=== PATIENT | female | born 1955 | race Caucasian/White ===

== ENCOUNTER 2016-07-08 17:46 | Inpatient (IN) | payer OTHER ==
--- NOTE | ~2016-07-08 | EKG ---
PATIENT: DARLENE TSE UNIT #: [id number] Ventricular Rate: 119 BPM Atrial Rate: 119 BPM QRS Duration: 84 ms Q-T Interval: 282 ms QTC Calculation(Bezet): 396 ms Calculated R [place]: 51 degrees Calculated T [place]: 52 degrees Diagnosis Line: Atrial fibrillation with rapid ventricular Diagnosis Line: response Diagnosis Line: Nonspecific ST and T wave abnormality , probably Diagnosis Line: digitalis effect Diagnosis Line: Abnormal ECG Diagnosis Line: When compared with ECG of 08-JUL-2016 18:03, Diagnosis Line: Atrial fibrillation has replaced Sinus rhythm Diagnosis Line: Confirmed by JOSE MCINTYRE MD ([id number]) on 07/13/2016 Diagnosis Line: 9:33:29 AM INTERPRETING MD: MIGUELINA RODRIGUEZ
--- NOTE | ~2016-07-08 | CT57 ---
[facility] A Service of [facility] RADIOLOGY TEXT RESULTS PATIENT: DARLENE TSE LOCATION: [address]-04 : [birth year] UNIT #: [id number] AGE: [address]: Corbin Long MD SEX: F ORDER DR: [id number] [place] [id number] [facility]. [place], [place] [address] [id number] I MR#: [id number] #: [id number] NAME: DARLENE TSE : 1955 SEX: F STUDY DATE/TIME: 07/09/2016 16:37 UNIT: [facility] ROOM: [facility] STUDY DESCRIPTION: CT Chest Wo Cont Attending Physician: Corbin Long M.D. Ordering Physician: Corbin Long M.D. Primary Care Physician: Janna Yung M.D. MEDICAL IMAGING REPORT This report is preliminary unless electronic signature is present EXAM CT chest without contrast INDICATIONS Shortness of air for the past [address] chest. This CT exam was performed with one or more of the following radiation dose reduction techniques: Automatic exposure control, adjustment of mA and/or kV according to patient size, and iterative reconstruction. COMPARISON None FINDINGS There is dense consolidation in the right middle lobe and essentially the complete right lower lobe. There is large right and moderate left pleural effusion. Opacity in the posterior left lung base may represent infiltrate or atelectasis. There is patchy nodular opacity in the posterior right upper lobe with ground-glass opacity and interstitial thickening in the anterior upper right and left lung. Diffuse mildly prominent mediastinal lymph nodes. A subcarinal node measures up 2.8 x 1.4 cm. No acute findings in the included upper abdomen. No aggressive appearing bone lesion. Old or late subacute fractures of lower left ribs. IMPRESSION 1. Dense consolidation right middle lobe and right lower lobe in keeping with pneumonia. 2. Bilateral pleural effusions. 3. Opacity in the posterior left lower lobe could represent infiltrate or atelectasis. [facility] A Service of [facility] RADIOLOGY TEXT RESULTS PATIENT: DARLENE TSE LOCATION: [facility]2-04 : 59 UNIT #: [id number] AGE: [address]: Corbin Long MD SEX: F ORDER DR: 4. Nodular opacities in the posterior right upper lobe could represent pneumonia or true nodules and should be followed. 5. Interstitial thickening and ground-glass opacity in both upper lobes, could also represent pneumonia, chronic change or possibly asymmetric patchy edema. Dictated by... Hector Hanson M.D. THIS IS AN ELECTRONICALLY VERIFIED REPORT Hector Hanson M.D. at 07/10/2016 10:02 AM GENTRY/roberta TD: 07/10/2016 06:57 JOB #: [id number] MEDICAL IMAGING REPORT Page 1 of 1 COPY
--- NOTE | ~2016-07-08 | CR63 ---
[facility] A Service of [facility] RADIOLOGY TEXT RESULTS PATIENT: DARLENE TSE LOCATION: C3A 317-01 : 59 UNIT #: [id number] AGE: [address]: Corbin Long MD SEX: F ORDER DR: [id number] [facility] [address] [facility]. [place], [place] [address] [id number] I MR#: [id number] Acc #: [id number] NAME: DARLENE TSE : 1955 SEX: F STUDY DATE/TIME: 07/11/2016 11:42 UNIT: C3A PCU ROOM: 317 STUDY DESCRIPTION: CR Chest 2 View Attending Physician: Corbin Long M.D. Ordering Physician: Kathy Livingston M.D. Primary Care Physician: Janna Yung M.D. MEDICAL IMAGING REPORT This report is preliminary unless electronic signature is present EXAM Chest 2 views, 07/11/2016 at 11:42 hours HISTORY A 61-year-old with shortness of air, fever and dizziness since 07/08/16 for followup. COMPARISON Chest x-ray 07/10/[address] 07/09/2016 FINDINGS 2 view upright chest demonstrates stable right PICC line with tip in SVC. The cardiac, mediastinal and hilar contours are stable. There is dense airspace density in the right lower lung similar to prior study with patchy density right upper lung unchanged. There is diffuse increase in mixed interstitial and airspace change throughout the left lung as compared to yesterday's exam suggesting either worsening diffuse infection or superimposed edema. Bilateral pleural effusions are seen on the lateral view. IMPRESSION Stable dense opacity in the right mid and lower lung with patchy density in the right upper lung with significant interval increase in diffuse mixed interstitial airspace changes throughout the left lung as compared to yesterday's exam. Findings suggest either worsening diffuse bilateral infection or superimposed edema. Small to moderate bilateral pleural effusions are seen on the lateral view. STAT * RESULT Dictated by... [facility] A Service of [facility] RADIOLOGY TEXT RESULTS PATIENT: DARLENE TSE LOCATION: [facility] 317-01 : 59 UNIT #: [id number] AGE: [address]: Corbin Long MD SEX: F ORDER DR: Zuri Avalos M.D. THIS IS AN ELECTRONICALLY VERIFIED REPORT Zuri Avalos M.D. at 07/11/2016 1:22 PM TOO/kate TD: 07/11/2016 12:48 JOB #: [id number] MEDICAL IMAGING REPORT Page 1 of 1 COPY
--- NOTE | ~2016-07-08 | CR72 ---
[facility] A Service of [facility] RADIOLOGY TEXT RESULTS PATIENT: DARLENE TSE LOCATION: [facility] 317-01 : 59 UNIT #: [id number] AGE: [address]: Corbin Long MD SEX: F ORDER DR: [id number] [facility] [address] [facility] [address]. [place], [place] [address] [id number] I MR#: [id number] Acc #: [id number] NAME: DARLENE TSE : 1955 SEX: F STUDY DATE/TIME: 07/10/2016 2:36 UNIT: [facility] ROOM: [facility] STUDY DESCRIPTION: CR Chest Single View Portable Attending Physician: Corbin Long M.D. Ordering Physician: Corbin Long M.D. Primary Care Physician: Janna Yung M.D. MEDICAL IMAGING REPORT This report is preliminary unless electronic signature is present EXAM AP portable chest 07/10/2016 HISTORY Pneumonia. Follow up inpatient cardiopulmonary status. TECHNIQUE AP portable chest x-ray. FINDINGS The exam shows no change since 07/08/2016. Dense airspace consolidation within the right middle lobe and right lower lobe. Mild patchy infiltrates at the lung apices. Heart size and pulmonary vascularity remain normal. PICC in good position. IMPRESSION Stable portable chest radiograph, unchanged since 07/08/2016. Dictated by... Eric Gutierrez M.D. THIS IS AN ELECTRONICALLY VERIFIED REPORT Eric Gutierrez M.D. at 07/10/2016 9:43 PM JUVENAL/roberta TD: 07/10/2016 12:56 JOB #: [id number] MEDICAL IMAGING REPORT Page 1 of 1 COPY
--- NOTE | ~2016-07-08 | DS ---
Unit #: [id number] #: [id number] Patient: DARLENE TSE [id number] [address] [address] [id number] I MR#: [id number] NAME: DARLENE TSE ROOM: 317 Age: 61 Sex: F Admission Date: 07/08/2016 : 1955 Discharge Date: 07/18/2016 Attending Physician: Norris Eagle M.D. Primary Care Physician: Janna Yung M.D. DISCHARGE SUMMARY DISCHARGE DIAGNOSES 1. Acute hypoxic respiratory failure due to pneumonia and chronic obstructive pulmonary disease. 2. Acute on chronic diastolic heart failure. The patient's ejection fraction is predicted to be 60%. Will be discharged on Lasix 40 mg orally daily. 3. Nonsustained ventricular tachycardia likely due to electrolyte imbalance as patient's heart cath was normal and her ejection fraction is normal as well. 4. Pneumonia, present on admission, was treated with Levaquin. 5. Clostridium difficile on Flagyl, has symptomatically improved by much at this time. Will be discharged with one more week of Flagyl. 6. Sepsis, present on admission with Streptococcus pneumo bacteremia due to pneumonia. 7. Chronic back pain. 8. Chronic kidney disease stage 2, stable at this time. 9. History of paroxysmal atrial fibrillation, stable in normal sinus rhythm. 10. Hyperlipidemia. 11. History of pancreatitis: Patient was at one point a severe alcoholic. 12. Chronic diarrhea: Patient tells me that she has had diarrhea since 2015. 13. Gastroesophageal reflux disease. 14. Major depression without homicidal or suicidal ideation. 15. Acute on chronic hypoxic respiratory failure. CONSULTANTS 1. Dr. Livingston of pulmonary. 2. [facility]. PROCEDURES The patient had a heart cath by Dr. Moore on July 18, 2016 with normal coronary arteries and predicted ejection fraction 60%. DIAGNOSTIC STUDIES LABORATORY: Today's lab: The patient's BMP: Glucose of 126, BUN 28, creatinine 1.1, sodium 136, potassium 4.3, chloride 97, CO2 of 31, calcium 8.7, magnesium 1.7. Total protein is 5.2, albumin is 2.2, total bilirubin 0.4, AST 20, ALT 14, alkaline phosphatase 75. CBC with WBC of 11.6, RBC 3.76, hemoglobin 10.4, hematocrit 32.6, MCV is 86.7, MCH is 27.6, MCHC is 31.8, RDW is 17.5, platelets 330,000, MPV 6.7. IMAGING: Chest x-ray on July 08, 2016: Impression: Extensive Unit #: [id number] #: [id number] Patient: DARLENE TSE infiltrate right mid to lower lung field consistent with pneumonia. Left lung was clear. CT chest without contrast, July 09, 2016: Impression: Dense consolidation of right middle lobe and right lower lobe in keeping with pneumonia, bilateral pleural effusion, opacity in the posterior left lower lobe could represent infiltrate or atelectasis. Nodular opacities in the posterior right upper lobe could represent pneumonia or true nodules and should be followed. Interstitial thickening and ground-glass opacity in both lower lobes could represent pneumonia, chronic change, or possibly asymmetric patchy edema. Chest x-ray on July 10, 2016: Impression: Stable chest x-ray, unchanged since July 08, 2016. Another chest x-ray on July 11, 2016: Impression: Stable dense opacity in the right middle and lower lobe, right upper lobe with significant interval increase and diffuse mixed interstitial airspace throughout the left lung as compared to the x-ray from the day before suggesting worsening diffuse bilateral infection or superimposed edema. [id number] bilateral pleural effusions are seen on the lateral view. Chest x-ray on July 13, 2016: Impression: Dense consolidation in the right lung, significantly improved. Worsening infiltrates in the left lobe. Chest x-ray on July 15, 2016: Impression: Improvement in the interstitial and alveolar opacities throughout the left lung. No significant pleural effusion. No evidence of pneumothorax. Cardiomediastinal silhouette is within normal limits. Improving pneumonia. Chest, two view, on July 17, 2016: Impression: Improved but persistent bilateral infiltrates. HOSPITAL COURSE The patient is a 61-year-old female with past medical history of paroxysmal atrial fibrillation, chronic kidney disease, alcohol abuse who is homeless and was brought to the emergency room due to having fevers at the facility there. From the H and P, the patient stated that she stopped drinking alcohol three days prior to admission. [facility]. Had noted increasing deep chronic productive cough with light green sputum with shortness of breath. She stated that she also had feeling of lightheadedness and dizzy with fevers, chills, and sweats and at the [facility] was found to have a fever of 102. She was sent to the emergency department where she was found to have tachycardia and was hypotensive. She received 2 L of fluid resuscitation. Blood pressure on exam was systolic of 70 mmHg. Chest x-ray had shown right mid to lower lobe infiltrate. She was given Rocephin and Zithromax. She was hospitalized for sepsis due to community-acquired pneumonia. She was followed by pulmonary. With her history of atrial fibrillation, cardiology was consulted. With regard to her symptoms, she had been complaining about diarrhea which is chronic she says since 2014 but with the antibiotics, she said that it was worsening and she had continuous diarrhea. When assessed, her Clostridium difficile was positive. We have started the patient on Flagyl and she will continue with Flagyl for the next seven days with regard to her pneumonia. She was found to have Streptococcus pneumonia bacteremia in 2/2 sets of blood. She had completed her course of IV antibiotics for the Streptococcus pneumo and Unit #: [id number] #: [id number] Patient: DARLENE TSE bacteremia. Her blood culture that was redrawn on July 10 had no growth. She had been afebrile. At this time, she does still have diarrhea with bowel movements but it has reduced down to three a day. I presume that she would do well after she completes her course of Flagyl treatment. If there are any other concerns for persistent Clostridium difficile, a repeat stool culture can be assessed for Clostridium difficile. The patient did have a run of nonsustained ventricular tachycardia on July 17. Her Lopressor was increased from twice daily to three times daily but was felt by cardiology that this was likely due to an electrolyte imbalance. At that time, her potassium was 3.1 and magnesium was 1.1. It has been replaced and we will continue with its replacement. She did have a heart cath to assess nonsustained ventricular tachycardia and the acute on chronic diastolic heart failure. She was found to have normal coronary arteries and predicted ejection fraction of 60%. She is stable at this time. Due to her much deconditioning, she will be discharged to rehab. She has been accepted to [facility] and will be discharged there. DISCHARGE CONDITION Stable to [facility]. DISCHARGE INSTRUCTIONS 1. Please arrange for a primary care physician for this patient so that she can followup with a physician in one to two weeks after discharge. 2. She can have a repeat magnesium, CBC, and BMP on Saturday, July 23, 2016, to assess her electrolytes. 3. She is chronically on oxygen and states that she was using it prior to being homeless, so she will go there with oxygen at 2 L a minute. DISCHARGE MEDICATIONS 1. DuoNeb inhaled four times daily. 2. Prednisone 20 mg for the next three days, then 10 mg for the next three days. 3. She can have Tylenol for pain 500 mg orally three times daily as needed for pain and/or fever. 4. Gabapentin - I am reducing it to 600 mg orally twice daily. 5. She can have the Remeron 15 mg orally at bedtime. 6. Zoloft 200 mg orally daily. 7. Zyrtec 10 mg orally daily. 8. Pravachol 40 mg orally at bedtime. 9. Abreva topically as needed for chapped lips. 10. She does not need any more hydroxyzine. 11. Lopressor - this is recommended per cardiology to reduce to 12.5 mg orally twice daily. Hold for systolic blood pressure less than 110 or heart rate less than 55 beats per minute. 12. Lasix 40 mg orally daily. Hold for systolic blood pressure less than 90. 13. Mucinex one tablet orally twice daily. 14. Lisinopril 2.5 mg orally daily. 15. Flagyl 500 mg orally three times daily for the next three days. 16. Florastor 250 mg orally twice daily. 17. Multivitamin one tablet orally daily. 18. Vitamin B12 with vitamin C complete one tablet orally daily. 19. Prilosec 20 mg orally daily. 20. Calcium carbonate 500 mg orally twice daily. 21. K-Dur 20 mEq orally twice daily. 22. She does not need any more Flexeril. 23. Thiamine 100 mg orally daily. 24. Vitamin B12 at 1000 mcg orally daily. Unit #: [id number] #: [id number] Patient: DARLENE TSE This dictation took 45 minutes to include patient education and to coordinate care. Dictated by... Abhishek Parekh PA-C for Hari Sams TD: 07/18/2016 14:04 JOB #: [id number] DISCHARGE SUMMARY Page 1 of 1 X X DISCHARGE SUMMARY
--- NOTE | ~2016-07-08 | CR63 ---
[facility] A Service of [facility] & [facility] RADIOLOGY TEXT RESULTS PATIENT: DARLENE TSE LOCATION: [facility] 317- : 59 UNIT #: [id number] AGE: [address]: Corbin Long MD SEX: F ORDER DR: [id number] [facility] [address] [facility]. [place], [place] [address] [id number] I MR#: [id number] Acc #: [id number] NAME: DARLENE TSE : 1955 SEX: F STUDY DATE/TIME: 07/13/2016 8:43 UNIT: A U ROOM: [facility] STUDY DESCRIPTION: CR Chest 2 View Attending Physician: Corbin Long M.D. Ordering Physician: Kathy Livingston M.D. Primary Care Physician: Janna Yung M.D. MEDICAL IMAGING REPORT This report is preliminary unless electronic signature is present EXAM PA and lateral chest INDICATION 61-year-old female with cough and shortness of breath for 1 week. Compared with yesterday. FINDINGS The dense consolidation of the right lung is significantly improved. There are worsening infiltrates however within the left lung. Heart size stable. Stable PICC line. Trace pleural fluid on the right. IMPRESSION 1. Dense consolidation in the right lung significantly improved. 2. Worsening infiltrates in the left lung. Dictated by... Roland Yung M.D. THIS IS AN ELECTRONICALLY VERIFIED REPORT Roland Yung M.D. at 07/13/2016 5:01 PM MEERA/monica TD: 07/13/2016 10:06 JOB #: [id number] MEDICAL IMAGING REPORT Page 1 of 1 COPY
--- NOTE | ~2016-07-08 | EKG ---
PATIENT: DARLENE TSE UNIT #: [id number] Ventricular Rate: 119 BPM Atrial Rate: 119 BPM P-R Interval: 136 ms QRS Duration: 66 ms Q-T Interval: 324 ms QTC Calculation(Bezet): 455 ms P [place]: -16 degrees Calculated R [place]: 30 degrees Calculated T [place]: 47 degrees Diagnosis Line: Sinus tachycardia Diagnosis Line: Septal infarct , age undetermined Diagnosis Line: Abnormal ECG Diagnosis Line: No previous ECGs available Diagnosis Line: Confirmed by VICKEY FREEDMAN MD ([id number]) on Diagnosis Line: 07/09/2016 8:02:44 AM INTERPRETING MD: JASMINA RODRIGUEZ
--- NOTE | ~2016-07-08 | CO ---
Unit #: [id number] #: [id number] Patient: DARLENE TSE [id number] [address] [place], [place] [address] [id number] I MR#: [id number] NAME: DARLENE STE ROOM: 317 Age: 61 Sex: F Admission Date: 07/08/2016 : 1955 Attending Physician: Corbin Long M.D. Primary Care Physician: Janna Yung M.D. Consultation Date: 07/12/2016 CONSULTATION REPORT REASON FOR CONSULTATION Congestive heart failure. HISTORY OF PRESENT ILLNESS This is a 61-year-old white female, who came to the emergency room because of shortness of breath. She states she has had shortness of breath with a productive cough with green sputum. She felt feverish and had chills. In the emergency room, chest x-ray was concerning for pneumonia. Follow up CT of the chest confirmed right lower lobe pneumonia. She has been treated with antibiotics. Blood cultures showed streptococcal bacteremia. Because of sepsis protocol she was given high-dose IV fluids. BNP on admission was 241, however, with elevation of 1575. It was felt that the patient may have congestive heart failure. During the course of her stay, the patient was noted to have runs of atrial fibrillation with rapid ventricular response. Admission EKG shows sinus tachycardia. The patient states she has had history of atrial fibrillation in the past. She has not been on anticoagulation. She gives a history of frequent falls and has had head injuries at least twice because of falls. She states she has an "equilibrium problem." She is also known to have vertigo. The patient is homeless and has been staying in the [place] in place. She has been seen at [facility], where she obtains her medications. She has not been on any medications for rate control. During her hospitalization, she was placed on metoprolol. She is also hypertensive this admission, her blood pressure has been as high as 166/110 mmHg. She denies chest pain or palpitations. She reports no leg edema. PAST MEDICAL HISTORY 1. Hypertension. 2. Paroxysmal atrial fibrillation, not on anticoagulation. Questionable secondary to falls. 3. Hyperlipidemia. 4. Chronic kidney disease. 5. Low back pain. 6. Chronic diarrhea. 7. Vertigo. 8. EtOH abuse. 9. GERD. 10. Active smoker. 11. History of frequent falls. 12. History of pancreatitis. Unit #: [id number] #: [id number] Patient: DARLENE TSE PAST SURGICAL HISTORY No previous surgeries. SOCIAL HISTORY The patient is homeless. She smokes a pack of cigarettes daily. Has a remote history of alcohol use. She states she quit drinking heavily several years ago. She denies illicit drug use. FAMILY HISTORY Mother had congestive heart failure. ALLERGIES Eliquis. HOME MEDICATIONS Remeron 15 mg q.h.s., acetaminophen 1000 mg t.i.d. p.r.n., hydroxyzine 25 mg q.6 hours p.r.n., calcium carbonate 500 mg b.i.d., nortriptyline 1 to 3 tablets q.h.s., vitamin B complex 1 tablet daily, Neurontin 600 mg t.i.d., Zoloft 200 mg daily, potassium chloride 20 mEq b.i.d., Flexeril 10 mg q.h.s., multivitamin 1 tablet daily, pravastatin 40 mg q.h.s., omeprazole 20 mg daily, and Zyrtec 10 mg daily. REVIEW OF SYSTEMS CONSTITUTIONAL: Negative for fever or chills. Had no recent weight loss. She states she has been gaining weight. Positive for recent fever and chills. HEENT: No headache, hearing or vision changes, or difficulty with swallowing. Has occasional dizziness. CARDIOVASCULAR: Has no symptoms of angina. Denies palpitations. No paroxysmal nocturnal dyspnea or orthopnea. No syncope or near syncope. RESPIRATORY: Positive for dyspnea at rest, that is worse on exertion. Has a productive cough with green sputum. GASTROINTESTINAL: No abdominal pain, nausea, or vomiting. Reports frequent diarrhea. EXTREMITIES: Negative for lower extremity edema. PHYSICAL EXAMINATION VITAL SIGNS: Blood pressure 148/101, heart rate of 101, temperature 98.4. BMI of 21. GENERAL: This is a thin frail 61-year-old white female, who is in no acute respiratory distress. She appears older than her stated age. NECK: Trachea is midline. No thyromegaly or lymphadenopathy. No jugular venous distention. HEART: S1 and S2. Heart sounds are normal. No murmurs. No rubs or clicks. Irregularly irregular rhythm. LUNGS: With diminished breath sounds with expiratory wheezes in both lungs. No rales. ABDOMEN: Soft and nontender with bowel sounds present. No hepatomegaly. EXTREMITIES: With weak pedal pulses. There is trace lower extremity edema. DIAGNOSTIC STUDIES LABORATORY RESULTS: Sodium 141, potassium 2.6, BUN 16, creatinine 0.8. White count 20.5, hemoglobin 10.5, hematocrit 33.0, platelet count 259. IMAGING STUDIES: Repeat chest x-ray shows worsening diffuse bilateral infection are superimposed edema. Small to moderate bilateral pleural effusions. Unit #: [id number] #: [id number] Patient: DARLENE TSE CARDIOVASCULAR STUDIES: EKG; sinus tachycardia with a rate of 116 beats per minute with premature atrial complexes. Nonspecific ST wave abnormalities. Rhythm strip shows atrial fibrillation with rapid ventricular response with a rate up to 170 beats per minute. IMPRESSION 1. Bilateral pneumonia. 2. Acute hypoxic respiratory failure. 3. Fluid overload. 4. Paroxysmal atrial fibrillation with rapid ventricular response. 5. Hypertension. 6. Hyperlipidemia. 7. Nicotine abuse. 8. Probable sepsis. PLAN 1. Cardiology was consulted for possible congestive heart failure. The patient was given a large volume IV fluids for sepsis. BNP is elevated. 2. We will obtain 2D echocardiogram to evaluate left ventricular systolic function. 3. Control heart rate and blood pressure with increased dose of beta-ángela. 4. No anticoagulation for atrial fibrillation, because of history of frequent falls with head injury. 5. TSH and lipid profile will be obtained. 6. We will repeat EKG. 7. Supplement electrolytes. 8. Start on Aldactone. 9. We will add Lovenox for anticoagulation during hospitalization. 10. We will follow the patient with you. Thank you for allowing us to assist in this patient's care. Dictated by... Leigh Martinez/lisandra TD: 07/14/2016 00:37 JOB #: [id number] CONSULTATION REPORT Page 1 of 1 X Jose Garcia APRN X CONSULTATION REPORT
--- NOTE | ~2016-07-08 | CR72 ---
[facility] A Service of [facility] RADIOLOGY TEXT RESULTS PATIENT: DARLENE TSE [facility] [birth year] UNIT #: [id number] AGE: [address]: Corbin Long MD SEX: F ORDER DR: [id number] [facility] [address] [facility]. [place], [place] [address] [id number] I MR#: [id number] Acc #: [id number] NAME: DARLENE TSE : 1955 SEX: F STUDY DATE/TIME: 07/08/2016 17:55 UNIT: [facility] ROOM: [facility] STUDY DESCRIPTION: CR Chest Single View Portable Attending Physician: Corbin Long M.D. Ordering Physician: Shital Cleary M.D. Primary Care Physician: Janna Yung M.D. MEDICAL IMAGING REPORT This report is preliminary unless electronic signature is present EXAM Portable chest. HISTORY Shortness of breath, fever and dizziness beginning 2 days ago. COMPARISON 03/06/2016. TECHNIQUE Single view chest was obtained. FINDINGS Single view chest shows dense alveolar consolidation in the right efi-xq-areao lung field, new since the previous exam. Given the patient's history this most likely represents pneumonia. The heart and mediastinum are stable. The left lung is clear. The inspiratory effort is generally shallow. Vascular markings are normal. IMPRESSION Extensive infiltrate right zrb-uc-zdfzs lung field consistent with pneumonia. The left lung is clear. Dictated by... Javier Montague M.D. THIS IS AN ELECTRONICALLY VERIFIED REPORT Javier Montague M.D. at 07/10/2016 11:02 AM RLF/gz TD: 07/09/2016 11:06 JOB #: [id number] [facility] A Service of [facility] RADIOLOGY TEXT RESULTS PATIENT: DARLENE TSE [facility]-26 : [birth year] UNIT #: [id number] AGE: [address]: Corbin Long MD SEX: F ORDER DR: MEDICAL IMAGING REPORT Page 1 of 1 COPY
--- NOTE | ~2016-07-08 | HP ---
Unit #: [id number] #: [id number] Patient: DARLENE TSE [id number] [address] [place], [place] [address] [id number] I MR#: [id number] NAME: DARLENE TSE ROOM: [facility] Age: 61 Sex: F Admission Date: 07/08/2016 : 1955 Attending Physician: Irasema Roman M.D. Primary Care Physician: Janna Yung M.D. HISTORY AND PHYSICAL CHIEF COMPLAINT Pneumonia with sepsis. HISTORY This 61-year-old female with paroxysmal atrial fibrillation, chronic kidney disease, alcohol abuse, is admitted for pneumonia with sepsis. The patient states that she was homeless, and relapsed. Was drinking alcohol until about three days ago. She then went to the [facility]. Over the past week notes an increasingly deep cough productive of light green sputum with shortness of breath. More recently states that she has felt lightheaded and dizzy with fever, sweats and chills. At the [facility] she was found to have a temperature over 102 degrees. She was sent to this facility where she is somewhat tachycardic, and hypotensive. She received 2 L of saline, but as I am seeing her, her systolic blood pressure is only 70. Chest x-ray shows a right mid to right lower lobe infiltrates. She was given Rocephin and Zithromax in the emergency room. On examination she has rhonchi throughout. She also has poor dentition. PAST MEDICAL HISTORY 1. Chronic kidney disease. 2. Paroxysmal atrial fibrillation. 3. Hyperlipidemia. 4. History of pancreatitis. 5. Chronic diarrhea. 6. GERD. 7. Chronic low back pain. 8. Depression. ALLERGIES Eliquis. HOME MEDICATIONS She lists Remeron SolTab 15 mg q.h.s.; p.r.n. Tylenol; Atarax 25 mg 1 to 2 tablets q.6 hours as needed; calcium 500 mg b.i.d.; nortriptyline 1-3 capsules at bedtime; vitamin B complex daily; Neurontin 600 mg q.i.d.; Zoloft 200 mg daily; potassium 20 mEq b.i.d.; Flexeril 10 mg q.h.s.; multivitamin daily; Pravachol 40 mg q.h.s.; Prilosec 20 mg daily; Zyrtec 10 mg daily. FAMILY HISTORY Congestive heart failure. SOCIAL HISTORY Unit #: [id number] #: [id number] Patient: DARLENE TSE The patient is homeless, [facility] Last abused alcohol three days ago. Denies any symptoms of withdrawal. She smokes one pack per day of tobacco, does no use illicit drugs. REVIEW OF SYSTEMS Notable for cough, chills, dizziness, chronic kidney disease, PAF, hyperlipidemia, pancreatitis, GERD, depression, diarrhea, chronic pain. Repair of her humeral fracture. All of her systems were reviewed and are otherwise negative. PHYSICAL EXAMINATION VITAL SIGNS: Some ill appearing 61-year-old female, temperature was as high as 101.9. Her O2 sat was as low as 90% on room air. Heart rate 127, respiration 20, initial blood pressure 90/63, but current systolic blood pressure is 70 despite 2 L of fluid and antibiotics. HEENT: Eyes - PERRLA, extraocular muscles intact, pharynx very poor dentition. NECK: Supple without adenopathy or thyromegaly. CHEST: Reveals rhonchi throughout particularly on the right. CARDIAC: Slightly tachy S1 and S2 without murmur. ABDOMEN: Bowel sounds are present. No hepatosplenomegaly, tenderness or masses. EXTREMITIES: Without clubbing, cyanosis or edema. Pedal pulses are present. NEUROLOGIC: Patient is awake, alert, and oriented. Cranial nerves are intact. Equal strength throughout. DIAGNOSTIC STUDIES LABORATORY STUDIES: Hematocrit is 27.7, white blood count is 28, normal platelet count, 5 bands noted. SMA 12 - creatinine 1.5, sodium 132, CO2 21, albumin is 3.4, alk phos 118, BNP 241, lactic acid 1.2. Flu serology negative as is Strep screen. Blood cultures are pending. Urinalysis - 3+ leukocyte esterase with 25-50 red cells, 50-100 white cells, 2+ bacteria, but moderate squamous epithelial cells. IMAGING STUDIES: Chest x-ray shows extensive infiltrate right mid to right lower lung field. ASSESSMENT 1. Pneumonia with sepsis. Will treat community acquired pneumonia but also has to be concerned about aspiration pneumonia given recent alcohol abuse. 2. Possible urinary tract infection. 3. Hypotension related to sepsis. 4. Normocytic anemia. 5. History of alcohol abuse, but none for the past three days. 6. History of pancreatitis and chronic diarrhea. 7. Paroxysmal atrial fibrillation. 8. Hyperlipidemia. 9. GERD. 10. Tobacco abuse. PLANS 1. Levaquin and Zosyn, will give one does of vancomycin pending cultures. 2. IV fluids and pressors. 3. DuoNeb. 4. Florastor. Unit #: [id number] #: [id number] Patient: DARLENE TSE 5. DVT prophylaxis. 6. Will request old records. 7. Anemia workup. 8. Pulmonary consultation. 9. Smoking cessation counseling and vaccines at the time of discharge. 10. Obtain an EKG. 11. Repeat labs in the morning. Critical care time spent in evaluating this patient was 40 minutes. Dictated by Irasema Roman M.D. AML/ts TD: 07/09/2016 05:04 JOB #: [id number] CC: [facility] HISTORY AND PHYSICAL X Irasema Roman MD X HISTORY AND PHYSICAL
--- NOTE | ~2016-07-08 | DS ---
Unit #: [id number] #: [id number] Patient: DARLENE TSE [id number] [address] [place], [place] [address] [id number] I MR#: [id number] NAME: DARLENE TSE ROOM: 317 Age: 61 Sex: F Admission Date: 07/08/2016 : 1955 Discharge Date: Attending Physician: Corbin Long M.D. Primary Care Physician: Janna Yung M.D. DISCHARGE SUMMARY CONSULTANTS Dr. Livingston and Dr. Elvia Cureil. ADMITTING DIAGNOSES Sepsis, pneumonia, history of alcoholism, relapsed back to alcoholism, atrial fibrillation, history of chronic kidney disease, and diastolic heart failure. HISTORY OF PRESENT ILLNESS The patient is a 61-year-old lady with a past medical history of chronic kidney disease, alcohol abuse, paroxysmal atrial fibrillation, presented on the 07/08/2016 with a chief complaint of cough and shortness of breath. Apparently, she was homeless and relapsed back to drinking alcohol and she was having fevers and chills. HOSPITAL COURSE Initial blood work showed 2 out of 2 blood cultures were positive for Strep pneumonia. She was started on antimicrobials. She started to have diarrhea and a stool for C diff was positive. She was initiated on sepsis protocol, initiated on fluids and she started to feel more short of breath. We diuresed her. Her breathing slowly improved. We obtained a 2D echo with Doppler, which showed an EF of 45% to 50% and mild hypokinesis of the mid anteroseptal wall in the left ventricle is noted. Cardiology was consulted. She is scheduled for a bronchoscopy today. She is still feeling short of breath at this point. She has continued with antimicrobials. Kindly note in the chart, we did have her last year so the antimicrobials in place. Dr. Lviingston is helping us with the management of pneumonia and sepsis and Dr. Curiel is helping us with the management of the atrial fibrillation and heart failure at this point. family services manager is involved in the discharge at this point. A final discharge summary will be dictated by me or my colleagues at the time of actual discharge. Dictated by... Corbin Long M.D. PS/modl TD: 07/14/2016 04:05 JOB #: [id number] Unit #: [id number] #: [id number] Patient: CARMENCITADARLENE DISCHARGE SUMMARY Page 1 of 1 X X DISCHARGE SUMMARY
--- NOTE | ~2016-07-08 | EKG ---
PATIENT: DARLENE TSE UNIT #: [id number] Ventricular Rate: 97 BPM Atrial Rate: 97 BPM P-R Interval: 128 ms QRS Duration: 74 ms Q-T Interval: 352 ms QTC Calculation(Bezet): 447 ms P Kiefer: 85 degrees Calculated R Kiefer: 79 degrees Calculated T Kiefer: 75 degrees Diagnosis Line: Normal sinus rhythm Diagnosis Line: Cannot rule out Septal infarct , age undetermined Diagnosis Line: Borderline ECG Diagnosis Line: When compared with ECG of 11-JUL-2016 21:27, Diagnosis Line: (unconfirmed) Diagnosis Line: Sinus rhythm has replaced Atrial fibrillation Diagnosis Line: Diagnosis Line: Confirmed by JENNIFER LEE MD ([id number]) on 07/15/2016 Diagnosis Line: 7:21:02 AM INTERPRETING MD: ROSA RODRIGUEZ
--- NOTE | ~2016-07-08 | EKG ---
PATIENT: DARLENE TSE UNIT #: [id number] Ventricular Rate: 130 BPM Atrial Rate: 130 BPM QRS Duration: 82 ms Q-T Interval: 270 ms QTC Calculation(Bezet): 397 ms Calculated R [place]: 47 degrees Calculated T [place]: 52 degrees Diagnosis Line: Atrial fibrillation with rapid ventricular Diagnosis Line: response with premature ventricular or aberrantly Diagnosis Line: conducted complexes Diagnosis Line: Nonspecific ST and T wave abnormality , probably Diagnosis Line: digitalis effect Diagnosis Line: Abnormal ECG Diagnosis Line: When compared with ECG of 11-JUL-2016 21:26, Diagnosis Line: (unconfirmed) Diagnosis Line: No significant change was found Diagnosis Line: Confirmed by JOSE MCINTYRE MD ([id number]) on 07/13/2016 Diagnosis Line: 9:33:32 AM INTERPRETING MD: MIGUELINA RODRIGUEZ
--- NOTE | ~2016-07-08 | CR72 ---
[facility] A Service of [facility] RADIOLOGY TEXT RESULTS PATIENT: DARLENE TSE LOCATION: [facility] 317-01 : 59 UNIT #: [id number] AGE: [address]: Norris Eagle MD SEX: F ORDER DR: [id number] [place] [id number] [facility] [place]. [place], [place] [address] [id number] I MR#: [id number] Acc #: [id number] NAME: DARLENE TSE : 1955 SEX: F STUDY DATE/TIME: 07/15/2016 4:49 UNIT: [address] ROOM: [facility] STUDY DESCRIPTION: CR Chest Single View Portable Attending Physician: Norris Eagle M.D. Ordering Physician: Kathy Livingston M.D. Primary Care Physician: Janna Yung M.D. MEDICAL IMAGING REPORT This report is preliminary unless electronic signature is present EXAM Portable AP view of the chest, 07/15/2016 COMPARISON July 13, 2016; July 11, 2016 and July 10, [address] chest dated July 09, 2016. INDICATION 61-year-old female with fever, cough and dyspnea for 1 week. Pneumonia and sepsis. FINDINGS AND IMPRESSION Right upper extremity PICC is stable with the tip terminating in the lower SVC. There appears to be improvement in interstitial and alveolar opacities throughout the left lung with otherwise stable patchy opacities in the right lung, some of which appear somewhat nodular. No significant pleural effusion. No evidence of pneumothorax. Cardiomediastinal silhouette is within normal limits. Findings likely reflect improving pneumonia. Followup to resolution recommended. Dictated by... Daquan Ghosh M.D. THIS IS AN ELECTRONICALLY VERIFIED REPORT Daquan Ghosh M.D. at 07/17/2016 4:24 PM RUMA/marjorie TD: 07/15/2016 22:06 JOB #: [id number] MEDICAL IMAGING REPORT [facility] A Service [facility] RADIOLOGY TEXT RESULTS PATIENT: DARLENE TSE LOCATION: [facility] 317-01 : [birth year] UNIT #: [id number] AGE: [address]: Norris Eagle MD SEX: F ORDER DR: Page 1 of 1 COPY
--- NOTE | ~2016-07-08 | XA166 ---
[facility] A Service of [facility] RADIOLOGY TEXT RESULTS PATIENT: DARLENE TSE LOCATION: [address]-04 : 59 UNIT #: [id number] AGE: [address]: Corbin Long MD SEX: F ORDER DR: [id number] [facility] [address] [facility]. [place], [place] [address] [id number] I MR#: [id number] Acc #: [id number] NAME: DARLENE TSE : 1955 SEX: F STUDY DATE/TIME: 07/09/2016 13:56 [facility]: [facility] STUDY DESCRIPTION: XA PICC Line Placement WO Port Attending Physician: Corbin Long M.D. Ordering Physician: Corbin Long M.D. Primary Care Physician: Janna Yung M.D. MEDICAL IMAGING REPORT This report is preliminary unless electronic signature is present EXAM Right-sided PICC line placement. HISTORY Need for IV access for IV antibiotics in a patient with pneumonia. PRE-PROCEDURE The procedure was explained to the patient and/or patient sales representative publications including risks, benefits, potential complications and potential for alternative forms of treatment. Informed consent was obtained, and prior to initiating the procedure a formal timeout procedure was performed. PROCEDURE Using full standard sterile barrier technique, including caps, gowns, gloves, masks, as well as sterile skin preparation and standard sterile draping, the arm was prepped and draped in the usual fashion, and real-time sterile ultrasound guidance was used to localize an arm vein and to confirm vessel patency. A hard copy ultrasound image was recorded. After local anesthesia with 1% Xylocaine, the vein was punctured using real-time sterile ultrasound guidance, and an 0.018 guidewire was advanced into the superior vena cava, using fluoroscopic guidance. A 5 Colombian dual-lumen PICC was then measured and deployed with the tip positioned in the superior vena cava. The position of the line was documented with a radiographic image. The line was secured in place with an adhesive dressing and an antibiotic patch was applied. Total fluoro time was 0.1 minutes. IMPRESSION Successful placement of a 5 [place]ian dual-lumen PowerPICC via the right arm under ultrasound and fluoroscopic guidance. The tip of the PICC is in good position in the superior vena cava. [facility] A Service of [facility] & [facility] RADIOLOGY TEXT RESULTS PATIENT: DARLENE TSE LOCATION: [facility]2-04 : 59 UNIT #: [id number] AGE: [address]: Corbin Long MD SEX: F ORDER DR: Dictated by... Rashmi Alexander M.D. THIS IS AN ELECTRONICALLY VERIFIED REPORT Rashmi Alexander M.D. at 07/10/2016 5:55 PM SAVANNA/malka TD: 07/10/2016 13:55 JOB #: [id number] MEDICAL IMAGING REPORT Page 1 of 1 COPY
--- NOTE | ~2016-07-08 | CR63 ---
[facility] A Service of [facility] RADIOLOGY TEXT RESULTS PATIENT: DARLENE TSE LOCATION: [facility] 317-01 : 59 UNIT #: [id number] AGE: [address]: Norris Eagle MD SEX: F ORDER DR: [id number] [facility] [address] [place], [place] [address] [id number] I MR#: [id number] Acc #: [id number] NAME: DARLENE TSE : 1955 SEX: F STUDY DATE/TIME: 07/17/2016 8:30 UNIT: [address] ROOM: [facility] STUDY DESCRIPTION: CR Chest 2 View Attending Physician: Norris Eagle M.D. Ordering Physician: Kathy Livingston M.D. Primary Care Physician: Janna Yung M.D. MEDICAL IMAGING REPORT This report is preliminary unless electronic signature is present EXAM Chest x-ray 07/17 INDICATIONS Shortness of air. COPD. Smoker. Chest pain. Symptoms since 07/16/2016. Preoperative exam for heart cath. TECHNIQUE/COMPARISON 2 views of the chest compared to 07/15/2016 FINDINGS Heart size is within normal limits. Right arm PICC is in the SVC. There is emphysema. There is some alveolar consolidation in the right middle lobe which could reflect atelectasis or pneumonia. Interstitial infiltrates bilaterally are minimally improved. This probably reflects improving pneumonia although diffuse pneumonitis, particularly in the left lung, is not excluded. There is no pneumothorax. IMPRESSION Improved but persistent bilateral infiltrates as above. Right arm PICC in the SVC. Dictated by... Javier Donahue Jr., M.D. THIS IS AN ELECTRONICALLY VERIFIED REPORT Javier Donahue Jr., M.D. at 07/17/2016 1:37 PM RLK/to TD: 07/17/2016 12:16 JOB #: [id number] MEDICAL IMAGING REPORT [facility] A Service of [facility] RADIOLOGY TEXT RESULTS PATIENT: DARLENE TSE LOCATION: [facility] 317-01 : 59 UNIT #: [id number] AGE: [address]: Norris Eagle MD SEX: F ORDER DR: Page 1 of 1 COPY
--- NOTE | ~2016-07-08 | EKG ---
PATIENT: DARLENE TSE UNIT #: [id number] Ventricular Rate: 94 BPM Atrial Rate: 94 BPM P-R Interval: 114 ms QRS Duration: 68 ms Q-T Interval: 346 ms QTC Calculation(Bezet): 432 ms P [place]: 52 degrees Calculated R [place]: 48 degrees Calculated T [place]: 36 degrees Diagnosis Line: Normal sinus rhythm Diagnosis Line: Normal ECG Diagnosis Line: When compared with ECG of 13-JUL-2016 06:24, Diagnosis Line: T wave amplitude has increased in Lateral leads Diagnosis Line: Confirmed by MATI PARKER MD ([id number]) on Diagnosis Line: 07/22/2016 2:07:51 PM INTERPRETING MD: MAINOR
--- NOTE | ~2016-07-08 | CO ---
Unit #: [id number] #: [id number] Patient: DARLENE TSE [id number] [address] [address] [id number] MR#: [id number] NAME: DARLENE TSE ROOM: [facility] Age: 61 Sex: F Admission Date: 07/08/2016 : 1955 Attending Physician: Corbin Long M.D. Primary Care Physician: Janna Yung M.D. CONSULTATION REPORT REASON FOR CONSULTATION Critical care management. CHIEF COMPLAINT Cough, shortness of breath. HISTORY OF PRESENT ILLNESS A 61-year-old female with past medical history of atrial fibrillation, chronic kidney disease, alcohol abuse, presents with a complaint of cough, shortness of breath. She was homeless and was drinking alcohol about three days ago and went to the [facility] and over the past week noted increased cough and increasing sputum production and was admitted with septic shock and pneumonia. Currently her temperature is 102. I am seeing her at the bedside complaining of cough and shortness of breath. REVIEW OF SYSTEMS Positive for pallor, no edema, no cyanosis, no jaundice. PAST MEDICAL HISTORY 1. Chronic kidney disease. 2. Atrial fibrillation. 3. COPD. 4. Pancreatitis. 5. Chronic diarrhea. 6. Gastroesophageal reflux disease. ALLERGIES Eliquis. HOME MEDICATION Remeron, Tylenol, Atarax, calcium, nortriptyline and Neurontin, Zoloft, Flexeril, Prilosec, Pravachol. SOCIAL HISTORY Lives at [facility], smokes [id number]-half packs per day. PHYSICAL EXAMINATION VITAL SIGNS: Temperature currently 101. Respiration 20. Blood pressure is 131/71. Oxygen saturation 97%. NEUROLOGICAL: She is awake, alert, follows commands. CVS: S1 plus S2. RESPIRATORY: Bilateral air entry, bilateral mild rhonchi, GI: Nontender, soft. Bowel sounds positive. Unit #: [id number] #: [id number] Patient: DARLENE TSE EXTREMITIES: No edema. SKIN: No rashes. No ulcer. LYMPHATIC: No lymphadenopathy. DIAGNOSTIC STUDIES LABORATORY: Blood gas is pending. Her white count is 24, hemoglobin 8, hematocrit 27, platelet count is 286. She is currently on pressors. ASSESSMENT 1. Acute hypoxic respiratory failure. 2. Septic shock. 3. Pneumonia. 4. Acute kidney injury. PLAN Plan is to continue patient on vancomycin, Zosyn and Levaquin. Aggressive hydration. IV stress dose steroid. IV antibiotic. Noncontract CT of the chest will be ordered. May need a thoracentesis and bronchoscopy. Please see orders for detailed plan. We will continue to monitor in ICU. Thank you very much for this consultation. Dictated by... Hari Molina/liam TD: 07/09/2016 19:17 JOB #: [id number] CONSULTATION REPORT Page 1 of 1 X Kathy Livingston MD CONSULTATION REPORT
[~2016-07-08 17:46] MED LIST: ACETAMINOPHEN PO; ATARAX PO; B-COMPLEX1 TAB PO; CALCIUM ANTACI500 MG PO; FLEXERIL PO; K-DUR10 MEQ PO; NEURONTIN600 MG PO; NORTRIPTYLINE H10 MG PO; ONE DAILY COMPL1 TA1 PO; PRAVACHOL PO; PRILOSEC PO; REMERON SOLTAB15 M1 PO; ZOLOFT PO; ZYRTEC10 M1 PO
[2016-07-08 18:16] LABS: URINE SOURCE CLEAN CATCH
[2016-07-08 18:22] LABS: URINE APPEARANCE CLOUDY; URINE BILIRUBIN NEG (NEG); URINE BLOOD TRACE (NEG); URINE COLOR YELLOW; URINE GLUCOSE NEG (NEG); URINE KETONE NEG (NEG); URINE LEUKOCYTE ESTERASE 3+ (NEG); URINE NITRATE NEG (NEG); URINE PH 5.5 (5-8); URINE PROTEIN NEG (NEG); URINE SPECIFIC GRAVITY 1.021 (1.003-1.035); URINE UROBILINOGEN 0.2 MG/DL (NEG)
[2016-07-08 18:24] LABS: BASOPHIL% 0.1 % (0-2.5); HEMATOCRIT 27.7 % (35.0-45.0); HEMOGLOBIN 8.7 gm/dL (12.0-16.0); LYMPHOCYTE# 1.3 X10e3 (1.0-3.5); LYMPHOCYTE% 4.8 % (17.0-45.0); MEAN CELL VOLUME 87.2 FL (83-96); MEAN CORPUSCULAR HEMOGLOBIN 27.5 PG (28-34); MEAN CORPUSCULAR HGB CONC 31.5 g/dL (30-36); MONOCYTE# 1.1 X10e3 (0-1.0); NEUTROPHIL# 25.4 X10e3 (1.5-7.1); NEUTROPHIL% 91.1 % (40-75); PLATELET COUNT 272 X10e3 (140-420); RED BLOOD COUNT 3.17 X10e (3.90-5.30); RED CELL DISTRIBUTION WIDTH 17.6 % (11.0-15.5); WHITE BLOOD COUNT 27.9 X10e3 (4.0-10.5)
[2016-07-08 18:25] LABS: CULTURE INDICATED? YES; URBCS1 AUWI 25-50 /[HPF] (0-2); URINE BACTERIA AUWI 2+ (NEGATIVE); URINE SQUAMOUS EPITHELIAL CELL MOD /[HPF]; UWBCS1 AUWI 50-100 (0-5)
[2016-07-08 18:31] LABS: U HYALINE CASTS AUWI 0-2 /[LPF]
[2016-07-08 18:32] LABS: DIFF IND YES
[2016-07-08 18:33] LABS: INFLUENZA A NEG (NEG); INFLUENZA B NEG (NEG)
[2016-07-08 18:44] LABS: PLATELET ESTIMATE NORMAL (NORMAL); RBC NORMAL YES
[2016-07-08 18:46] LABS: ALBUMIN SERUM 3.4 g/dL (3.5-5.0); BILIRUBIN, DIRECT 0.1 mg/dL (0.0-0.2); BILIRUBIN,INDIRECT 0.6 mg/dL (0.0-0.9); BILIRUBIN,TOTAL 0.7 mg/dL (0.2-2.0); BUN/CREATININE RATIO 15.33; CALCIUM SERUM 9.1 mg/dL (8.4-10.2); CREATININE SERUM 1.5 mg/dL (0.6-1.4); GLOM FILT RATE Estimated 37.8 mL/min (>60); POTASSIUM 4.6 mmol/L (3.5-5.1)
[2016-07-09 04:31] LABS: BASOPHIL% 0.1 % (0-2.5); EOSINOPHIL% 0.1 % (0.0-7.0); HEMATOCRIT 27.2 % (35.0-45.0); HEMOGLOBIN 8.4 gm/dL (12.0-16.0); LYMPHOCYTE# 0.8 X10e3 (1.0-3.5); LYMPHOCYTE% 3.2 % (17.0-45.0); MEAN CELL VOLUME 88.2 FL (83-96); MEAN CORPUSCULAR HEMOGLOBIN 27.2 PG (28-34); MEAN CORPUSCULAR HGB CONC 30.8 g/dL (30-36); MEAN PLATELET VOLUME 7.1 FL (6.5-11.5); MONOCYTE# 0.6 X10e3 (0-1.0); MONOCYTE% 2.3 % (3.0-12.0); NEUTROPHIL# 23.2 X10e3 (1.5-7.1); NEUTROPHIL% 94.3 % (40-75); PLATELET COUNT 286 X10e3 (140-420); RED BLOOD COUNT 3.09 X10e (3.90-5.30); RED CELL DISTRIBUTION WIDTH 17.6 % (11.0-15.5); RETICULOCYTE 2.1 % (0.5-2.8); WHITE BLOOD COUNT 24.6 X10e3 (4.0-10.5)
[2016-07-09 04:33] LABS: DIFF IND NO
[2016-07-09 04:45] LABS: ALBUMIN SERUM 2.4 g/dL (3.5-5.0); ALKALINE PHOSPHATASE 104 U/L (32-92); ALT (SGPT) 28 U/L (10-40); AST (SGOT) 21 U/L (10-42); BILIRUBIN,TOTAL 0.7 mg/dL (0.2-2.0); BLOOD UREA NITROGEN 22 mg/dL (9-23); CALCIUM SERUM 7.7 mg/dL (8.4-10.2); CARBON DIOXIDE 19 mmol/L (22-31); CHLORIDE 109 mmol/L (100-111); CREATININE SERUM 1.1 mg/dL (0.6-1.4); GLUCOSE FASTING 68 mg/dL (70-110); POTASSIUM 4.2 mmol/L (3.5-5.1); PROTEIN TOTAL SERUM 5.2 g/dL (6.0-8.3); SODIUM 136 mmol/L (135-145); TOTAL IRON BINDING CAPACITY 242 ug/dL (269-535); TRANSFERRIN 173 mg/dL (192-382)
[2016-07-09 04:46] LABS: IRON SERUM <5 ug/dL (28-170); TRANSFERRIN SATURATION 2 % (20-50)
[2016-07-09 05:04] LABS: FOLATE (FOLIC ACID) >23.6 ng/mL (>5.8)
[2016-07-09 08:23] LABS: INR 1.2
[2016-07-09 15:50] LABS: ARTERIAL BLD GAS O2 SATURATION 92.6 % (90.0-100.0); ARTERIAL BLOOD GAS ALLEN TEST NORMAL; ARTERIAL BLOOD GAS ART SITE RIGHT RADIAL; ARTERIAL BLOOD GAS CARBOXY HB 0.8 %sat (0.0-9.0); ARTERIAL BLOOD GAS DELIVERY NASAL CANNULA; ARTERIAL BLOOD GAS HCO3 17.8 mmol/L; ARTERIAL BLOOD GAS MET HB 0.9 %sat (0.0-2.0); ARTERIAL BLOOD GAS PO2 68.1 mmHg (80.0-100); ARTERIAL BLOOD GAS pH 7.383 (7.350-7.450); ARTERIAL DRAW? YES
[2016-07-10 03:47] LABS: ARTERIAL BLD GAS O2 SATURATION 97.6 % (90.0-100.0); ARTERIAL BLOOD GAS ART SITE RIGHT RADIAL; ARTERIAL BLOOD GAS CARBOXY HB 0.5 %sat (0.0-9.0); ARTERIAL BLOOD GAS FIO2 0.36 %; ARTERIAL BLOOD GAS MET HB 0.8 %sat (0.0-2.0); ARTERIAL BLOOD GAS PCO2 35.7 mmHg (35.0-45.0); ARTERIAL BLOOD GAS pH 7.311 (7.350-7.450); ARTERIAL DRAW? YES
[2016-07-10 03:48] LABS: ARTERIAL BLOOD GAS DELIVERY NASAL CANNULA
[2016-07-10 05:39] LABS: BASOPHIL% 0.1 % (0-2.5); EOSINOPHIL% 0.1 % (0.0-7.0); HEMATOCRIT 22.9 % (35.0-45.0); LYMPHOCYTE# 0.5 X10e3 (1.0-3.5); LYMPHOCYTE% 3.2 % (17.0-45.0); MEAN CORPUSCULAR HEMOGLOBIN 27.2 PG (28-34); MEAN CORPUSCULAR HGB CONC 30.6 g/dL (30-36); MEAN PLATELET VOLUME 7.1 FL (6.5-11.5); MONOCYTE# 0.3 X10e3 (0-1.0); NEUTROPHIL# 13.5 X10e3 (1.5-7.1); NEUTROPHIL% 94.6 % (40-75); PLATELET COUNT 214 X10e3 (140-420); RED BLOOD COUNT 2.58 X10e (3.90-5.30); RED CELL DISTRIBUTION WIDTH 17.4 % (11.0-15.5); WHITE BLOOD COUNT 14.3 X10e3 (4.0-10.5)
[2016-07-10 05:58] LABS: DIFF IND YES
[2016-07-10 06:10] LABS: ALBUMIN SERUM 2.1 g/dL (3.5-5.0); ALKALINE PHOSPHATASE 84 U/L (32-92); ALT (SGPT) 21 U/L (10-40); AST (SGOT) 12 U/L (10-42); BILIRUBIN,TOTAL 0.5 mg/dL (0.2-2.0); BLOOD UREA NITROGEN 17 mg/dL (9-23); BUN/CREATININE RATIO 18.88; CALCIUM SERUM 8.8 mg/dL (8.4-10.2); CARBON DIOXIDE 19 mmol/L (22-31); CHLORIDE 115 mmol/L (100-111); CREATININE SERUM 0.9 mg/dL (0.6-1.4); GLOM FILT RATE Estimated ABOVE60 mL/min (>60); GLUCOSE FASTING 121 mg/dL (70-110); MAGNESIUM 1.1 mg/dL (1.6-3.0); POTASSIUM 4.3 mmol/L (3.5-5.1); SODIUM 142 mmol/L (135-145)
[2016-07-10 06:30] LABS: ANISOCYTOSIS SL; PLATELET ESTIMATE NORMAL (NORMAL)
[2016-07-10 06:35] LABS: PROCALCITONIN 4.94 NG/ML
[2016-07-11 05:23] LABS: ARTERIAL BLD GAS O2 SATURATION 84.7 % (90.0-100.0); ARTERIAL BLOOD GAS CARBOXY HB 1.1 %sat (0.0-9.0); ARTERIAL BLOOD GAS HCO3 16.9 mmol/L; ARTERIAL BLOOD GAS MET HB 0.7 %sat (0.0-2.0); ARTERIAL BLOOD GAS PCO2 29.1 mmHg (35.0-45.0); ARTERIAL BLOOD GAS pH 7.373 (7.350-7.450)
[2016-07-11 05:24] LABS: BASOPHIL% 0.2 % (0-2.5); HEMATOCRIT 29.1 % (35.0-45.0); LYMPHOCYTE# 0.5 X10e3 (1.0-3.5); LYMPHOCYTE% 2.9 % (17.0-45.0); MEAN CELL VOLUME 86.9 FL (83-96); MEAN CORPUSCULAR HEMOGLOBIN 27.6 PG (28-34); MEAN CORPUSCULAR HGB CONC 31.7 g/dL (30-36); MONOCYTE# 0.5 X10e3 (0-1.0); MONOCYTE% 2.9 % (3.0-12.0); NEUTROPHIL# 15.8 X10e3 (1.5-7.1); PLATELET COUNT 237 X10e3 (140-420); RED BLOOD COUNT 3.35 X10e (3.90-5.30); RED CELL DISTRIBUTION WIDTH 17.1 % (11.0-15.5); WHITE BLOOD COUNT 16.9 X10e3 (4.0-10.5)
[2016-07-11 05:26] LABS: DIFF IND YES; HEMOGLOBIN 9.2 gm/dL (12.0-16.0)
[2016-07-11 05:29] LABS: ARTERIAL BLOOD GAS ALLEN TEST NORMAL; ARTERIAL BLOOD GAS ART SITE LEFT RADIAL; ARTERIAL BLOOD GAS DELIVERY ROOM AIR; ARTERIAL BLOOD GAS PO2 49.5 mmHg (80.0-100); ARTERIAL DRAW? YES
[2016-07-11 05:54] LABS: ANISOCYTOSIS SL; PLATELET ESTIMATE NORMAL (NORMAL)
[2016-07-11 06:00] LABS: ALBUMIN SERUM 2.6 g/dL (3.5-5.0); ALKALINE PHOSPHATASE 82 U/L (32-92); ALT (SGPT) 18 U/L (10-40); AST (SGOT) 15 U/L (10-42); BILIRUBIN,TOTAL 0.2 mg/dL (0.2-2.0); BLOOD UREA NITROGEN 18 mg/dL (9-23); CARBON DIOXIDE 17 mmol/L (22-31); CHLORIDE 114 mmol/L (100-111); CREATININE SERUM 0.9 mg/dL (0.6-1.4); GLOM FILT RATE Estimated ABOVE60 mL/min (>60); GLUCOSE FASTING 149 mg/dL (70-110); POTASSIUM 3.1 mmol/L (3.5-5.1); PROTEIN TOTAL SERUM 5.9 g/dL (6.0-8.3); SODIUM 140 mmol/L (135-145)
[2016-07-11 13:00] LABS: ARTERIAL BLD GAS O2 SATURATION 81.2 % (90.0-100.0); ARTERIAL BLOOD GAS CARBOXY HB 1.2 %sat (0.0-9.0); ARTERIAL BLOOD GAS HCO3 17.1 mmol/L; ARTERIAL BLOOD GAS MET HB 0.7 %sat (0.0-2.0); ARTERIAL BLOOD GAS PCO2 31.1 mmHg (35.0-45.0); ARTERIAL BLOOD GAS pH 7.349 (7.350-7.450)
[2016-07-11 13:06] LABS: ARTERIAL BLOOD GAS ALLEN TEST NORMAL; ARTERIAL BLOOD GAS ART SITE RIGHT RADIAL; ARTERIAL BLOOD GAS DELIVERY NASAL CANNULA; ARTERIAL BLOOD GAS PO2 45.9 mmHg (80.0-100); ARTERIAL DRAW? YES
[2016-07-12 04:09] LABS: ARTERIAL BLD GAS O2 SATURATION 81.4 % (90.0-100.0); ARTERIAL BLOOD GAS CARBOXY HB 1.1 %sat (0.0-9.0); ARTERIAL BLOOD GAS HCO3 21.1 mmol/L; ARTERIAL BLOOD GAS MET HB 0.7 %sat (0.0-2.0); ARTERIAL BLOOD GAS PCO2 31.2 mmHg (35.0-45.0)
[2016-07-12 04:13] LABS: ARTERIAL BLOOD GAS ALLEN TEST NORMAL; ARTERIAL BLOOD GAS ART SITE LEFT RADIAL; ARTERIAL BLOOD GAS PO2 44.9 mmHg (80.0-100); ARTERIAL DRAW? YES
[2016-07-12 04:14] LABS: ARTERIAL BLOOD GAS DELIVERY NASAL CANNULA
[2016-07-12 07:31] LABS: HEMOGLOBIN 10.5 gm/dL (12.0-16.0); MEAN CELL VOLUME 85.8 FL (83-96); MEAN CORPUSCULAR HEMOGLOBIN 27.2 PG (28-34); MEAN CORPUSCULAR HGB CONC 31.7 g/dL (30-36); RED BLOOD COUNT 3.85 X10e (3.90-5.30); RED CELL DISTRIBUTION WIDTH 17.1 % (11.0-15.5); WHITE BLOOD COUNT 20.5 X10e3 (4.0-10.5)
[2016-07-12 07:54] LABS: ALBUMIN SERUM 2.6 g/dL (3.5-5.0); ALKALINE PHOSPHATASE 86 U/L (32-92); ALT (SGPT) 16 U/L (10-40); AST (SGOT) 18 U/L (10-42); BILIRUBIN,TOTAL 0.8 mg/dL (0.2-2.0); BLOOD UREA NITROGEN 16 mg/dL (9-23); CALCIUM SERUM 9.3 mg/dL (8.4-10.2); CARBON DIOXIDE 22 mmol/L (22-31); CHLORIDE 108 mmol/L (100-111); CREATININE SERUM 0.8 mg/dL (0.6-1.4); GLOM FILT RATE Estimated ABOVE60 mL/min (>60); GLUCOSE FASTING 113 mg/dL (70-110); PROTEIN TOTAL SERUM 5.6 g/dL (6.0-8.3); SODIUM 141 mmol/L (135-145)
[2016-07-12 08:04] LABS: POTASSIUM 2.6 mmol/L (3.5-5.1)
[2016-07-12 12:01] LABS: ARTERIAL BLOOD GAS CARBOXY HB 1.3 %sat (0.0-9.0); ARTERIAL BLOOD GAS HCO3 22.5 mmol/L; ARTERIAL BLOOD GAS MET HB 0.7 %sat (0.0-2.0); ARTERIAL BLOOD GAS PCO2 31.8 mmHg (35.0-45.0); ARTERIAL BLOOD GAS pH 7.458 (7.350-7.450)
[2016-07-12 12:03] LABS: ARTERIAL BLOOD GAS ALLEN TEST NORMAL; ARTERIAL BLOOD GAS ART SITE LEFT RADIAL; ARTERIAL BLOOD GAS DELIVERY NASAL CANNULA; ARTERIAL BLOOD GAS PO2 65.3 mmHg (80.0-100); ARTERIAL DRAW? YES
[2016-07-12 20:32] LABS: MAGNESIUM 1.5 mg/dL (1.6-3.0)
[2016-07-12 20:40] LABS: POTASSIUM 2.8 mmol/L (3.5-5.1)
[2016-07-13 04:09] LABS: ARTERIAL BLD GAS O2 SATURATION 90.6 % (90.0-100.0); ARTERIAL BLOOD GAS HCO3 24.8 mmol/L; ARTERIAL BLOOD GAS MET HB 0.6 %sat (0.0-2.0); ARTERIAL BLOOD GAS PCO2 38.1 mmHg (35.0-45.0); ARTERIAL BLOOD GAS pH 7.423 (7.350-7.450)
[2016-07-13 04:19] LABS: ARTERIAL BLOOD GAS ALLEN TEST Y; ARTERIAL BLOOD GAS ART SITE RIGHT RADIAL; ARTERIAL BLOOD GAS DELIVERY OXYMIZER; ARTERIAL BLOOD GAS PO2 61.6 mmHg (80.0-100); ARTERIAL DRAW? YES
[2016-07-13 05:04] LABS: HEMATOCRIT 30.1 % (35.0-45.0); HEMOGLOBIN 9.6 gm/dL (12.0-16.0); MEAN CELL VOLUME 86.5 FL (83-96); MEAN CORPUSCULAR HEMOGLOBIN 27.5 PG (28-34); MEAN CORPUSCULAR HGB CONC 31.8 g/dL (30-36); MEAN PLATELET VOLUME 6.9 FL (6.5-11.5); RED BLOOD COUNT 3.48 X10e (3.90-5.30); RED CELL DISTRIBUTION WIDTH 17.1 % (11.0-15.5); WHITE BLOOD COUNT 15.7 X10e3 (4.0-10.5)
[2016-07-13 09:40] LABS: ALBUMIN SERUM 2.2 g/dL (3.5-5.0); BILIRUBIN,TOTAL 0.4 mg/dL (0.2-2.0); CALCIUM SERUM 8.9 mg/dL (8.4-10.2); GLOM FILT RATE Estimated 61.6 mL/min (>60); POTASSIUM 3.9 mmol/L (3.5-5.1); PROTEIN TOTAL SERUM 5.2 g/dL (6.0-8.3)
[2016-07-14 04:05] LABS: ARTERIAL BLD GAS O2 SATURATION 92.4 % (90.0-100.0); ARTERIAL BLOOD GAS HCO3 30.1 mmol/L; ARTERIAL BLOOD GAS MET HB 0.7 %sat (0.0-2.0); ARTERIAL BLOOD GAS PCO2 39.4 mmHg (35.0-45.0); ARTERIAL BLOOD GAS pH 7.491 (7.350-7.450)
[2016-07-14 04:06] LABS: ARTERIAL BLOOD GAS ALLEN TEST NORMAL; ARTERIAL BLOOD GAS ART SITE RIGHT RADIAL; ARTERIAL BLOOD GAS DELIVERY OXYMIZER; ARTERIAL DRAW? YES
[2016-07-14 05:55] LABS: HEMATOCRIT 31.1 % (35.0-45.0); HEMOGLOBIN 10.1 gm/dL (12.0-16.0); MEAN CELL VOLUME 85.9 FL (83-96); MEAN CORPUSCULAR HEMOGLOBIN 27.8 PG (28-34); MEAN CORPUSCULAR HGB CONC 32.4 g/dL (30-36); RED BLOOD COUNT 3.62 X10e (3.90-5.30); RED CELL DISTRIBUTION WIDTH 17.2 % (11.0-15.5); WHITE BLOOD COUNT 11.9 X10e3 (4.0-10.5)
[2016-07-14 06:58] LABS: BUN/CREATININE RATIO 24.44; CALCIUM SERUM 8.8 mg/dL (8.4-10.2); CREATININE SERUM 0.9 mg/dL (0.6-1.4); MAGNESIUM 1.6 mg/dL (1.6-3.0); POTASSIUM 3.9 mmol/L (3.5-5.1)
[2016-07-15 08:27] LABS: HEMOGLOBIN 10.9 gm/dL (12.0-16.0); MEAN CELL VOLUME 86.7 FL (83-96); MEAN CORPUSCULAR HEMOGLOBIN 27.8 PG (28-34); MEAN PLATELET VOLUME 7.3 FL (6.5-11.5); RED BLOOD COUNT 3.92 X10e (3.90-5.30); RED CELL DISTRIBUTION WIDTH 17.3 % (11.0-15.5); WHITE BLOOD COUNT 9.3 X10e3 (4.0-10.5)
[2016-07-15 08:53] LABS: CALCIUM SERUM 8.9 mg/dL (8.4-10.2); GLOM FILT RATE Estimated 61.6 mL/min (>60); MAGNESIUM 1.7 mg/dL (1.6-3.0); POTASSIUM 3.7 mmol/L (3.5-5.1)
[2016-07-16 06:43] LABS: BASOPHIL% 0.3 % (0-2.5); EOSINOPHIL% 0.1 % (0.0-7.0); HEMATOCRIT 36.6 % (35.0-45.0); HEMOGLOBIN 11.7 gm/dL (12.0-16.0); LYMPHOCYTE% 11.9 % (17.0-45.0); MEAN CELL VOLUME 87.1 FL (83-96); MEAN CORPUSCULAR HEMOGLOBIN 27.8 PG (28-34); MEAN CORPUSCULAR HGB CONC 31.9 g/dL (30-36); MONOCYTE# 0.6 X10e3 (0-1.0); MONOCYTE% 6.6 % (3.0-12.0); NEUTROPHIL# 7.1 X10e3 (1.5-7.1); NEUTROPHIL% 81.1 % (40-75); PLATELET COUNT 376 X10e3 (140-420); RED BLOOD COUNT 4.21 X10e (3.90-5.30); RED CELL DISTRIBUTION WIDTH 17.3 % (11.0-15.5); WHITE BLOOD COUNT 8.8 X10e3 (4.0-10.5)
[2016-07-16 06:46] LABS: DIFF IND NO
[2016-07-16 07:22] LABS: CALCIUM SERUM 8.9 mg/dL (8.4-10.2); GLOM FILT RATE Estimated 61.6 mL/min (>60); POTASSIUM 4.4 mmol/L (3.5-5.1)
[2016-07-17 11:27] LABS: CALCIUM SERUM 8.7 mg/dL (8.4-10.2); GLOM FILT RATE Estimated 61.6 mL/min (>60); MAGNESIUM 1.1 mg/dL (1.6-3.0); POTASSIUM 3.1 mmol/L (3.5-5.1)
[2016-07-18 03:32] LABS: ARTERIAL BLD GAS O2 SATURATION 93.7 % (90.0-100.0); ARTERIAL BLOOD GAS CARBOXY HB 0.5 %sat (0.0-9.0); ARTERIAL BLOOD GAS HCO3 34.1 mmol/L; ARTERIAL BLOOD GAS MET HB 0.7 %sat (0.0-2.0); ARTERIAL BLOOD GAS pH 7.442 (7.350-7.450)
[2016-07-18 03:33] LABS: ARTERIAL BLOOD GAS ALLEN TEST N; ARTERIAL BLOOD GAS PO2 70.4 mmHg (80.0-100); ARTERIAL DRAW? YES
[2016-07-18 03:34] LABS: ARTERIAL BLOOD GAS ART SITE RIGHT BRACHIAL; ARTERIAL BLOOD GAS DELIVERY NASAL CANNULA
[2016-07-18 05:20] LABS: BASOPHIL% 0.3 % (0-2.5); EOSINOPHIL# 0.1 X10e3 (0-0.7); EOSINOPHIL% 0.6 % (0.0-7.0); HEMATOCRIT 32.6 % (35.0-45.0); HEMOGLOBIN 10.4 gm/dL (12.0-16.0); LYMPHOCYTE# 1.5 X10e3 (1.0-3.5); MEAN CELL VOLUME 86.7 FL (83-96); MEAN CORPUSCULAR HEMOGLOBIN 27.6 PG (28-34); MEAN CORPUSCULAR HGB CONC 31.8 g/dL (30-36); MEAN PLATELET VOLUME 6.7 FL (6.5-11.5); MONOCYTE# 0.6 X10e3 (0-1.0); NEUTROPHIL# 9.4 X10e3 (1.5-7.1); NEUTROPHIL% 81.1 % (40-75); PLATELET COUNT 330 X10e3 (140-420); RED BLOOD COUNT 3.76 X10e (3.90-5.30); RED CELL DISTRIBUTION WIDTH 17.5 % (11.0-15.5); WHITE BLOOD COUNT 11.6 X10e3 (4.0-10.5)
[2016-07-18 05:21] LABS: DIFF IND YES
[2016-07-18 05:30] LABS: PARTIAL THROMBOPLASTIN TIME 26.9 SECONDS (23.5-31.3); PROTHROMBIN TIME (PATIENT) 10.9 SECONDS (9.6-11.5)
[2016-07-18 05:58] LABS: ANISOCYTOSIS SL; PLATELET ESTIMATE NORMAL (NORMAL)
[2016-07-18 06:10] LABS: BUN/CREATININE RATIO 25.45; CALCIUM SERUM 8.7 mg/dL (8.4-10.2); CREATININE SERUM 1.1 mg/dL (0.6-1.4); GLOM FILT RATE Estimated 54.9 mL/min (>60); POTASSIUM 4.3 mmol/L (3.5-5.1)
== END 2016-07-18 18:00 | DRG 871 ==
LOC: CED 17:46 → CEDOF 21:00 → CICCU2 07-09 02:27 → C3A PCU 07-10 19:58
PROVIDERS: Emergency Medicine; Internal Medicine; Internal Medicine Cardiovascular Disease
PROC: 02HV33Z Insertion of Infusion Device into Superior Vena Cava, Percutaneous Approach (ICD-10-PCS; 2016-07-09)
PROC: B518YZA Fluoroscopy of Superior Vena Cava using Other Contrast, Guidance (ICD-10-PCS; 2016-07-09)
PROC: B548ZZA Ultrasonography of Superior Vena Cava, Guidance (ICD-10-PCS; 2016-07-09)
PROC: B246YZZ Ultrasonography of Right and Left Heart using Other Contrast (ICD-10-PCS; 2016-07-11)
PROC: 30233N1 Transfusion of Nonautologous Red Blood Cells into Peripheral Vein, Percutaneous Approach (ICD-10-PCS; principal; 2016-07-18)
PROC: 4A023N7 Measurement of Cardiac Sampling and Pressure, Left Heart, Percutaneous Approach (ICD-10-PCS; 2016-07-18)
PROC: B211YZZ Fluoroscopy of Multiple Coronary Arteries using Other Contrast (ICD-10-PCS; 2016-07-18)
PROC: B215YZZ Fluoroscopy of Left Heart using Other Contrast (ICD-10-PCS; 2016-07-18)
DX: A40.3 Sepsis due to Streptococcus pneumoniae (principal); R65.21 Severe sepsis with septic shock; J96.01 Acute respiratory failure with hypoxia; I50.33 Acute on chronic diastolic (congestive) heart failure; I47.2 Ventricular tachycardia; I13.0 Hypertensive heart and chronic kidney disease with heart failure and stage 1 through stage 4 chronic kidney disease, or unspecified chronic kidney disease; J18.9 Pneumonia, unspecified organism; J44.0 Chronic obstructive pulmonary disease with (acute) lower respiratory infection; J44.1 Chronic obstructive pulmonary disease with (acute) exacerbation; A04.7 Enterocolitis due to Clostridium difficile; N17.9 Acute kidney failure, unspecified; N18.2 Chronic kidney disease, stage 2 (mild); I48.91 Unspecified atrial fibrillation; Z91.81 History of falling; E78.5 Hyperlipidemia, unspecified; K21.9 Gastro-esophageal reflux disease without esophagitis; F17.210 Nicotine dependence, cigarettes, uncomplicated; Z71.6 Tobacco abuse counseling; Z59.0 Homelessness; F10.20 Alcohol dependence, uncomplicated
CPT/HCPCS: 36415; 36600; 71010; 71020; 71250; 76937; 77001; 80048; 80053; 80061; 80076; 80202; 81003; 82274; 82308; 82607; 82728; 82746; 82803; 82947; 83540; 83550; 83605; 83735; 83880; 84132; 84439; 84443; 84484; 85025; 85027; 85044; 85610; 85730; 86850; 86900; 86901; 86923; 87040; 87070; 87077; 87086; 87186; 87205; 87493; 87633; 87651; 87804; 93005; 93306; 94640; 94760; 96360; 97110; 97116; 97163; 97165; 97530; 99291; C1751; C1769; C1887; C1894; J0171; J0456; J0696; J1644; J1650; J1720; J1940; J1956; J2250; J2370; J2405; J2543; J2920; J3010; J3370; J3420; J3475; J3490; P9016